=== PATIENT | female | born 1980 | race Caucasian/White ===

== ENCOUNTER 2018-07-16 15:53 | Emergency (ER) | END 2018-07-16 18:21 | disposition home or self-care (01) ==

== ENCOUNTER 2018-07-23 18:35 | Emergency (ER) | END 2018-07-24 01:00 | disposition home or self-care (01) ==

== ENCOUNTER 2018-08-08 19:01 | Inpatient (IN) | payer OTHER ==
[~2018-08-08] VITALS: Ht 165.1 cm; Wt 94.7 kg
[~2018-08-08 19:01] MED LIST: ACET1TAB40 PO; ALPR1TAB2 PO; DIC20 PO; ERGO500013 PO; ESOM40CA PO; FLUD0.1T10 PO; GABA300C16 PO; HYOS0.1297 SL; LEVO200T6 PO; LEVO500T48 PO; LIOT5TAB3 PO; NAPR-688 PO; NITR-58 PO; PANT40TA4 PO; PRED5TAB PO; ZOF8 PO; ZOLP10TA5 PO
[2018-08-08] MEDS ORDERED: ONDANSETRON 4 MG INJ IV STA (23:09)
[2018-08-08] MEDS ORDERED: morphine 4 MG/ML VIAL IV STA (23:09)
[2018-08-08] MEDS ORDERED: CEFTRIAXONE 1 GM/50 ML (PMX) 50 ML IVPB STA (23:09)
[2018-08-08] MEDS ORDERED: SODIUM CHLORIDE 0.9% 1L BAG IV* STA (23:09)
[2018-08-09] MEDS ORDERED: ACETAMINOPHEN 325 MG TAB PO PRN ×2 (01:30→05:00)
[2018-08-09] MEDS ORDERED: ONDANSETRON 4 MG INJ IV PRN (01:30)
--- NOTE | 2018-08-09 01:47 | ERD ---
ER Documentation Chief Complaint Chief Complaint R flank pain w/suprapubic cath site tenderness x 3 days HPI Patient is a 37-year-old female with history of endometriosis, anemia, and UTI who presents with a "infection". She has a suprapubic catheter. She has had 3 weeks of symptoms and has had 2 courses of antibiotics for cystitis already. She said that she still is not better and that she has "cottage cheese chunks" in her urinary catheter bag. She has right-sided flank pain and chills. Upon review of old medical records this is the patient's sixth visit to the ER since 2010. ROS All systems reviewed and are negative except as per history of present illness. Medications Home Meds Active Scripts Acetaminophen with Codeine (Acetaminophen-Cod #3 Tablet) 1 Each Tablet, 1 TAB PO Q6H PRN for PAIN, #20 TAB Prov:TOMAS LOMBARDO MD 07/23/18 Reported Medications Esomeprazole Mag Trihydrate (Nexium) 40 Mg Capsule.dr, 40 MG PO DAILY, #30 CAP 07/16/18 Dicyclomine HCl (Dicyclomine HCl) 20 Mg Tablet, 10 MG PO DAILY 07/16/18 Alprazolam* (Xanax*) 1 Mg Tab, 1 MG PO NEEDED PRN for ANXIETY, TAB 07/16/18 Zolpidem Tartrate* (Zolpidem Tartrate*) 10 Mg Tablet, 10 MG PO QHS PRN for I NSOMNIA, #30 TAB 07/16/18 Ergocalciferol (Vitamin D2) (VITAMIN D2) 50,000 Unit Capsule, 90007 UNIT PO Q2D, CAP 07/16/18 Pantoprazole* (Pantoprazole*) 40 Mg Tablet.dr, 40 MG PO AC BREAKFAST, TAB 07/16/18 Liothyronine Sodium* (Cytomel*) 5 Mcg Tablet, 10 MCG PO DAILY, TAB 07/16/18 Levothyroxine Sodium* (Levothyroxine Sodium*) 200 Mcg Tablet, 200 MCG PO BEFORE BREAKFAST, #30 TAB 07/16/18 Gabapentin* (Gabapentin*) 300 Mg Capsule, 300 MG PO TID, #90 CAP 07/16/18 Fludrocortisone* (Fludrocortisone*) 0.1 Mg Tablet, 0.1 MG PO DAILY, TAB 12/13/18 Ondansetron Hcl* (Zofran*) 8 Mg Tab, 8 MG PO Q8 PRN for NAUSEA AND/OR VOMITING, TAB 07/16/18 Naproxen* (Naproxen*) 500 Mg Tablet, 500 MG PO TID, TAB 07/16/18 Hyoscyamine Sulfate* (Hyoscyamine Sulfate*) 0.125 Mg Tab.subl, 0.125 MG SL WITH MEALS BEDTIME, TAB 07/16/18 Prednisone* (Prednisone*) 5 Mg Tab, 5 MG PO DAILY, TAB 07/16/18 Discontinued Scripts Nitrofurantoin Monohyd Macrocr* (Macrobid*) 100 Mg Capsr, 100 MG PO BID for 10 Days, CAP Prov:TOMAS LOMBARDO MD 07/23/18 Levofloxacin* (Levaquin*) 500 Mg Tablet, 500 MG PO DAILY for 10 Days, TAB Prov:TOMAS LOMBARDO MD 07/23/18 Allergies Allergies: Coded Allergies: Sulfa (Sulfonamide Antibiotics) (Verified Allergy, Unknown, 08/08/18) PMhx/Soc History of Surgery: Yes (HYSTERECTOMY ) Anesthesia Reaction: No Hx Neurological Disorder: No Hx Respiratory Disorders: No Hx Cardiac Disorders: No Hx Psychiatric Problems: No Hx Miscellaneous Medical Probl: Yes (ADRENAL DISORDER) Hx Alcohol Use: No Hx Substance Use: No Hx Tobacco Use: No Smoking Status: Never smoker FmHx Family History: diabetes Physical Exam Vitals Vital Signs Date Temp Pulse Resp B/P (MAP) Pulse Ox O2 O2 Flow FiO2 Time Delivery Rate 08/08/18 96.6 74 18 123/77 98 19:30 (92) Physical Exam Const: Mild distress Head: Atraumatic Eyes: Normal Conjunctiva ENT: Normal External Ears, Nose and Mouth. Neck: Full range of motion. No meningismus. Resp: Clear to auscultation bilaterally Cardio: Regular rate and rhythm, no murmurs Abd: Soft, suprapubic catheter in the lower abdomen Skin: No petechiae or rashes Back: No midline or flank tenderness Ext: No cyanosis, or edema Neur: Awake and alert Psych: Normal Mood and Affect Result Diagram: 08/08/18 1822 08/08/18 2322 Results 24 hrs Laboratory Tests Test 08/08/18 23:22 08/08/18 23:23 08/08/18 23:41 White Blood Count 8.2 10^3/ul Red Blood Count 4.37 10^6/ul Hemoglobin 11.9 g/dl Hematocrit 37.4 % Mean Corpuscular Volume 85.6 fl Mean Corpuscular Hemoglobin 27.2 pg Mean Corpuscular 31.8 g/dl Hemoglobin Concent Red Cell Distribution Width 14.6 % Platelet Count 337 10^3/UL Mean Platelet Volume 10.1 fl Immature Granulocytes % 0.100 % Neutrophils % 43.8 % Lymphocytes % 44.5 % Monocytes % 9.7 % Eosinophils % 1.7 % Basophils % 0.2 % Nucleated Red Blood Cells % 0.0 /100WBC Immature Granulocytes # 0.010 10^3/ul Neutrophils # 3.6 10^3/ul Lymphocytes # 3.6 10^3/ul Monocytes # 0.8 10^3/ul Eosinophils # 0.1 10^3/ul Basophils # 0.0 10^3/ul Nucleated Red Blood Cells # 0.0 10^3/ul Prothrombin Time 11.9 Sec Prothrombin Time Ratio 0.9 INR International 0.87 Normalized Ratio Activated Partial Thromboplast 27.5 Sec Time Sodium Level 144 mmol/L Potassium Level 4.2 mmol/L Chloride Level 105 mmol/L Carbon Dioxide Level 29 mmol/L Anion Gap 10 Blood Urea Nitrogen 19 mg/dl Creatinine 0.76 mg/dl Est Glomerular Filtrat > 60 mL/min Rate mL/min Glucose Level 102 mg/dl Calcium Level 9.9 mg/dl Troponin I < 0.012 ng/ml Urine Color YELLOW Urine Clarity SLIGHTLY CLOUDY Urine pH 5.0 Urine Specific [place] 1.021 Urine Ketones NEGATIVE mg/dL Urine Nitrite NEGATIVE mg/dL Urine Bilirubin NEGATIVE mg/dL Urine Urobilinogen NEGATIVE mg/dL Urine Leukocyte Esterase 3+ Giuseppe/ul Urine Microscopic RBC 7 /HPF Urine Microscopic WBC 67 /HPF Urine Bacteria FEW /HPF Urine Hemoglobin 1+ mg/dL Urine Glucose NEGATIVE mg/dL Urine Total Protein 1+ mg/dl POC Venous Lactate 1.3 mmol/L Current Medications Medications Dose Sig/Moises Start Time Status Last (Trade) Ordered Route PRN Stop Time Admin Dose Reason Admin Sodium 2,800 ml BOLUS OVER 2 08/08/18 DC 08/08/18 Chloride HOURS STAT 23:09 08/08/18 23:46 (NS) IV* 23:10 Morphine 4 mg ONCE STAT 08/08/18 DC 08/08/18 Sulfate IV 23:09 08/08/18 23:45 (morphine) 23:10 Ondansetron 4 mg ONCE STAT 08/08/18 DC 08/08/18 HCl (Zofran IV 23:09 08/08/18 23:45 Inj) 23:10 Ceftriaxone 50 ml @ ONCE STAT 08/08/18 DC 08/08/18 Sodium 100 mls/hr IVPB 23:09 08/08/18 23:46 23:38 Ondansetron 4 mg BRIDGE ORDER 08/09/18 HCl (Zofran PRN IV 01:30 08/10/18 Inj) NAUSEA AND/OR 01:29 VOMITING 650 mg ER BRIDGE 08/09/18 Acetaminophen PRN PO MILD 01:30 08/10/18 (Tylenol PAIN(1-3)OR 01:29 Tab) ELEVATED TEMP Procedures/MDM Patient is a 37-year-old female who presents with flank pain and acute cystitis. She was given ceftriaxone IV. She has failed outpatient treatment at this point as she has had 2 courses of antibiotics. She will be admitted to the care of Dr. Espinoza to a medical surgical bed. At this point I doubt sepsis. Initial lactic acid was normal. Departure Diagnosis: Primary Impression: Cystitis Additional Impression: Flank pain Condition: CHRISTOPHER Alvarado MD Aug 09, 2018 01:47
[2018-08-09] MEDS ORDERED: HYDROmorphONE 1 MG/ML SYG IV ONE (02:30)
[2018-08-09 04:45] VITALS: Ht 165.1 cm; Wt 94.7 kg
[2018-08-09 04:46] VITALS: BP 116/64; PULSE 62; RESP 18
[2018-08-09] MEDS ORDERED: NACL 0.9% 3 ML SYG IV SCH (05:00)
[2018-08-09] MEDS ORDERED: ZOLPIDEM 5 MG TAB PO PRN (05:00)
[2018-08-09] MEDS ORDERED: HYDROCODONE/APAP (5/325) TAB PO PRN (05:00)
[2018-08-09] MEDS ORDERED: ACETAMINOPHEN/CODEINE #3 TAB PO PRN (05:00)
[2018-08-09] MEDS ORDERED: ALBUTEROL/IPRATROPIUM (NEB) 3 ML AMP HHN PRN (05:00)
[2018-08-09] MEDS: LEVOTHYROXINE 100 MCG TAB PO SCH (06:27)
[2018-08-09] MEDS: PANTOPRAZOLE (EC) 40 MG TAB PO SCH (06:28)
--- NOTE | 2018-08-09 06:52 | HP ---
Date/Time of Note Date/Time of Note DATE: 08/09/18 TIME: 06:50 Assessment/Plan VTE Prophylaxis Risk score (from Nsg)>0 risk: 0 SCD applied (from Nsg): Yes Pharmacological prophylaxis: heparin Lines/Catheters IV Catheter Type (from Nrsg): Saline Lock Urinary Cath still in place: Yes Reason Cath still needed: other (indicate) Assessment/Plan Assessment/Plan 37-year-old female with a history of hypothyroidism, possible adrenal insufficiency, gastroparesis, gastric sleeve surgery, suprapubic catheter, UTI, anxiety presented with lower abdominal pain, most likely secondary to UTI with failed outpatient management PLAN -IV antibiotic -IV fluid -Follow-up urine culture results -Continue home meds, adjust as needed Result Diagram: 08/09/1844008/09/18440 Results 24hrs Laboratory Tests Test 08/08/18 23:22 08/08/18 23:23 08/08/18 23:41 08/09/18 04:41 White Blood Count 8.2 # 6.3 # Red Blood Count 4.37 3.55 L Hemoglobin 11.9 L 9.8 L Hematocrit 37.4 30.7 L Mean Corpuscular 85.6 86.5 Volume Mean Corpuscular 27.2 L 27.6 L Hemoglobin Mean Corpuscular 31.8 L 31.9 L Hemoglobin Concent Red Cell 14.6 H 14.5 Distribution Width Platelet Count 337 # 261 # Mean Platelet 10.1 10.5 H Volume Immature 0.100 0.200 Granulocytes % Neutrophils % 43.8 Lymphocytes % 44.5 Monocytes % 9.7 Eosinophils % 1.7 Basophils % 0.2 Nucleated Red 0.0 0.0 Blood Cells % Immature 0.010 0.010 Granulocytes # Neutrophils # 3.6 Lymphocytes # 3.6 H Monocytes # 0.8 Eosinophils # 0.1 Basophils # 0.0 Nucleated Red 0.0 Blood Cells # Prothrombin Time 11.9 Prothrombin Time 0.9 Ratio INR International 0.87 Normalized Ratio Activated 27.[address] Time Sodium Level 144 148 H Potassium Level 4.2 4.3 Chloride Level 105 111 H Carbon Dioxide 29 26 Level Anion Gap 10 11 Blood Urea 19 16 Nitrogen Creatinine 0.76 0.67 Est Glomerular > 60 > 60 Filtrat Rate mL/min Glucose Level 102 100 Calcium Level 9.9 8.8 Troponin I < 0.012 Urine Color YELLOW Urine Clarity SLIGHTLY CLOUDY A Urine pH 5.0 Urine Specific 1.021 [place] Urine Ketones NEGATIVE Urine Nitrite NEGATIVE Urine Bilirubin NEGATIVE Urine Urobilinogen NEGATIVE Urine Leukocyte 3+ H Esterase Urine Microscopic 7 H RBC Urine Microscopic 67 H WBC Urine Bacteria FEW A Urine Hemoglobin 1+ H Urine Glucose NEGATIVE Urine Total 1+ H Protein POC Venous Lactate 1.3 Lactic Acid Level 0.8 Total Bilirubin 0.0 L Direct Bilirubin 0.00 Indirect Bilirubin 0.0 Aspartate Amino 21 Transf (AST/SGOT) Alanine 23 Aminotransferase ( ALT/SGPT) Alkaline 68 Phosphatase Total Protein 6.9 Albumin 3.8 Globulin 3.10 Albumin/Globulin 1.22 Ratio HPI/ROS Admit Date/Time Admit Date/Time Aug 09, 2018 at 01:10 Hx of Present Illness This is a 37-year-old female with a history of hypothyroidism, possible adrenal insufficiency, gastroparesis, gastric sleeve surgery, suprapubic catheter who presented to ER complaining of suprapubic abdominal pain and the pain in her suprapubic catheter area as well as nausea. Patient was recently diagnosed with UTI and was treated with antibiotic. In the ER, UA consistent with UTI. She said supra catheter was placed about a year ago after complication from pelvic surgery ("my artery was nicked'). PMH/Family/Social Past Medical History Medications Current Medications Ondansetron HCl (Zofran Inj) 4 mg BRIDGE ORDER PRN IV NAUSEA AND/OR VOMITING; Start 08/09/18 at 01:30; Stop 08/10/18 at 01:29 Acetaminophen (Tylenol Tab) 650 mg ER BRIDGE PRN PO MILD PAIN(1-3)OR ELEVATED TEMP; Start 08/09/18 at 01:30; Stop 08/10/18 at 01:29 IV Flush (NS 3 ml) 3 ml PER PROTOCOL IV ; Start 08/09/18 at 05:00 Ondansetron HCl (Zofran Inj) 4 mg Q6H PRN IV NAUSEA AND/OR VOMITING; Start 08/09/18 at 05:00 Acetaminophen (Tylenol Tab) 650 mg Q6H PRN PO PAIN LEVEL 1-3 OR FEVER; Start 08/09/18 at 05:00 Acetaminophen/ Hydrocodone Bitart ([place] (5/325)) 1 tab Q6H PRN PO MODERATE PAIN LEVEL 4-6; Start 08/09/18 at 05:00 Acetaminophen/ Hydrocodone Bitart ([place] (5/325)) 2 tab Q6H PRN PO SEVERE PAIN LEVEL 7-10; Start 08/09/18 at 05:00 Albuterol/ Ipratropium (Duoneb) 3 ml Q2H RESP THERAPY PRN HHN SHORTNESS OF BREATH; Start 08/09/18 at 05:00 Alprazolam (Xanax) 1 mg Q8H PRN PO ANXIETY; Start 08/09/18 at 05:00 Ergocalciferol (Drisdol) 50,000 unit Q2D PO ; Start 08/09/18 at 09:00 Fludrocortisone Acetate (Florinef) 0.1 mg DAILY PO ; Start 08/09/18 at 09:00 Gabapentin (Neurontin) 300 mg TID PO ; Start 08/09/18 at 09:00 Hyoscyamine (Levsin (Sl)) 0.125 mg WITH MEALS BEDTIME SL ; Start 08/09/18 at 07:50 Levothyroxine Sodium (Synthroid) 200 mcg BEFORE BREAKFAST PO Last administered on 08/09/18at 06:27; Admin Dose 200 MCG; Start 08/09/18 at 07:00 Liothyronine Sodium (Cytomel) 10 mcg DAILY PO ; Start 08/09/18 at 09:00 Naproxen (Naprosyn) 500 mg TID PO ; Start 08/09/18 at 09:00 Pantoprazole (Protonix Tab) 40 mg AC BREAKFAST PO Last administered on 08/09/18at 06:28; Admin Dose 40 MG; Start 08/09/18 at 07:20 Zolpidem Tartrate (Ambien) 10 mg QHS PRN PO INSOMNIA; Start 08/09/18 at 05:00 Ceftriaxone Sodium 50 ml @ 100 mls/hr Q12 IVPB ; Start 08/09/18 at 09:00 Coded Allergies: Sulfa (Sulfonamide Antibiotics) (Verified Allergy, Unknown, 08/08/18) Social History Smoking Status: Never smoker Exam/Review of Systems Vital Signs Vitals Vital Signs Date Temp Pulse Resp B/P (MAP) Pulse Ox O2 O2 Flow FiO2 Time Delivery Rate 08/09/18 98.6 62 18 116/64 99 Room Air 04:46 (81) Exam Exam Constitutional: other (no acute distress) Head: normocephalic Respiratory: other (slight decreased at bases) Cardiovascular: regular rate and rhythm Gastrointestinal: soft Extremities: normal pulses PMH/Family/Social Past Medical History Medical History: other (see hpi) Coded Allergies: No Known Drug Allergy (Verified Allergy, Unknown, 03/21/16) Past Surgical History Past Surgical Hx: other (see hpi) Family History Significant Family History: no pertinent family hx Social History Alcohol Use: other Smoking Status: Unknown if ever smoked Drug Use: other DANTE RUSSELL MD Aug 09, 2018 06:52
[2018-08-09 07:59] VITALS: BP 99/56; PULSE 61; RESP 18
[2018-08-09] MEDS: CEFTRIAXONE 1 GM/50 ML (PMX) 50 ML IVPB SCH ×2 (08:24→21:00)
[2018-08-09] MEDS: GABAPENTIN 300 MG CAP PO SCH ×3 (08:24→20:59)
[2018-08-09] MEDS ORDERED: NON-FORMULARY/PATIENT OWN MED (Esomeprazole Mag Trihydrate (Nexium) 40 MG) PO SCH (09:00)
[2018-08-09] MEDS: HYOSCYAMINE 0.125 MG SUBL TAB SL SCH ×4 (09:16→20:59)
[2018-08-09] MEDS: NAPROXEN 500 MG TAB PO SCH ×3 (09:16→20:59)
[2018-08-09] MEDS: FLUDROCORTISONE 0.1 MG TAB PO SCH (09:18)
[2018-08-09] MEDS: ERGOCALCIFEROL 50,000 UNIT CAP PO SCH (09:18)
[2018-08-09] MEDS: LIOTHYRONINE 5 MCG TAB PO SCH (09:18)
[2018-08-09] MEDS: ONDANSETRON 4 MG INJ IV PRN (13:43)
[2018-08-09] MEDS: HYDROCODONE/APAP (5/325) TAB PO PRN (13:48)
[2018-08-09 14:18] VITALS: BP 100/57; PULSE 59; RESP 18
--- NOTE | 2018-08-09 15:18 | PN ---
Date/Time of Note Date/Time of Note DATE: 08/09/18 TIME: 15:14 Assessment/Plan VTE Prophylaxis Risk score (from Ns)>0 risk: 4 SCD applied (from Ns): Yes SCD contraindicated: low risk/ambulating Pharmacological prophylaxis: LMWH Lines/Catheters IV Catheter Type (from [facility]): Saline Lock Urinary Cath still in place: Yes Reason Cath still needed: urinary retention Assessment/Plan Hospital Course Assessment and plan 1. Abdominal pain, dysuria, foul-smelling discharge, rule out wound infection recurrent cystitis. Stable check cultures 2. Chronic obstructive uropathy 3. Chronic suprapubic catheter status, follow-up with urology 4. Morbid obesity 5. Anemia 6. Chronic IBS? 7. Chronic pain? Subjective: Abdominal discomfort foul-smelling discharge at suprapubic site recently. She has home health and did see urology every 6 weeks. Occasional constipation and diarrhea. No GI bleed. No hematuria but apparently he may have some clots occasionally. Active: Vital signs stable Physical exam No pallor adenopathy Regular Clear Bs+, mild suprapubic/ umbilical tenderness no r/r/g; overweight. catheter intact, local area is erythematous and not dry No edema Result Diagram: 08/09/18 0441 08/09/18 0441 Results 24hrs Laboratory Tests Test 08/08/18 23:22 08/08/18 23:23 08/08/18 23:41 08/09/18 04:41 White Blood Count 8.2 # 6.3 # Red Blood Count 4.37 3.55 L Hemoglobin 11.9 L 9.8 L Hematocrit 37.4 30.7 L Mean Corpuscular 85.6 86.5 Volume Mean Corpuscular 27.2 L 27.6 L Hemoglobin Mean Corpuscular 31.8 L 31.9 L Hemoglobin Concent Red Cell 14.6 H 14.5 Distribution Width Platelet Count 337 # 261 # Mean Platelet 10.1 10.5 H Volume Immature 0.100 0.200 Granulocytes % Neutrophils % 43.8 Lymphocytes % 44.5 Monocytes % 9.7 Eosinophils % 1.7 Basophils % 0.2 Nucleated Red 0.0 0.0 Blood Cells % Immature 0.010 0.010 Granulocytes # Neutrophils # 3.6 Lymphocytes # 3.6 H Monocytes # 0.8 Eosinophils # 0.1 Basophils # 0.0 Nucleated Red 0.0 Blood Cells # Prothrombin Time 11.9 Prothrombin Time 0.9 Ratio INR International 0.87 Normalized Ratio Activated 27.[address] Time Sodium Level 144 148 H Potassium Level 4.2 4.3 Chloride Level 105 111 H Carbon Dioxide 29 26 Level Anion Gap 10 11 Blood Urea 19 16 Nitrogen Creatinine 0.76 0.67 Est Glomerular > 60 > 60 Filtrat Rate mL/min Glucose Level 102 100 Calcium Level 9.9 8.8 Troponin I < 0.012 Urine Color YELLOW Urine Clarity SLIGHTLY CLOUDY A Urine pH 5.0 Urine Specific 1.021 [place] Urine Ketones NEGATIVE Urine Nitrite NEGATIVE Urine Bilirubin NEGATIVE Urine Urobilinogen NEGATIVE Urine Leukocyte 3+ H Esterase Urine Microscopic 7 H RBC Urine Microscopic 67 H WBC Urine Bacteria FEW A Urine Hemoglobin 1+ H Urine Glucose NEGATIVE Urine Total 1+ H Protein POC Venous Lactate 1.3 Segmented 32 L Neutrophils % (Manual) Lymphocytes % 49 (Manual) Reactive 2 H Lymphocytes % (Manual) Monocytes % 13 H (Manual) Eosinophils % 4 (Manual) Lymphocytes 3.0 H (Manual) Reactive 0.1 H Lymphocytes # Monocytes # 0.8 (Manual) Platelet Estimate NORMAL Polychromasia 3+ Poikilocytosis 1+ Anisocytosis 2+ Microcytosis 1+ Macrocytosis 1+ Lactic Acid Level 0.8 Total Bilirubin 0.0 L Direct Bilirubin 0.00 Indirect Bilirubin 0.0 Aspartate Amino 21 Transf (AST/SGOT) Alanine 23 Aminotransferase ( ALT/SGPT) Alkaline 68 Phosphatase Total Protein 6.9 Albumin 3.8 Globulin 3.10 Albumin/Globulin 1.22 Ratio Thyroid 7.590 H Stimulating Hormone (TSH) Exam/Review of Systems Vital Signs Vitals Vital Signs Date Temp Pulse Resp B/P (MAP) Pulse Ox O2 O2 Flow FiO2 Time Delivery Rate 08/09/18 97.8 59 18 100/57 94 14:18 (71) 08/09/18 Room Air 04:46 Medications Medications Current Medications Ondansetron HCl (Zofran Inj) 4 mg BRIDGE ORDER PRN IV NAUSEA AND/OR VOMITING; Start 08/09/18 at 01:30; Stop 08/10/18 at 01:29 Acetaminophen (Tylenol Tab) 650 mg ER BRIDGE PRN PO MILD PAIN(1-3)OR ELEVATED TEMP; Start 08/09/18 at 01:30; Stop 08/10/18 at 01:29 IV Flush (NS 3 ml) 3 ml PER PROTOCOL IV ; Start 08/09/18 at 05:00 Ondansetron HCl (Zofran Inj) 4 mg Q6H PRN IV NAUSEA AND/OR VOMITING Last administered on 08/09/18 13:43; Admin Dose 4 MG; Start 08/09/18 at 05:00 Acetaminophen (Tylenol Tab) 650 mg Q6H PRN PO PAIN LEVEL 1-3 OR FEVER; Start 08/09/18 at 05:00 Acetaminophen/ Hydrocodone Bitart ([place] (5/325)) 1 tab Q6H PRN PO MODERATE PAIN LEVEL 4-6; Start 08/09/18 at 05:00 Acetaminophen/ Hydrocodone Bitart ([place] (5/325)) 2 tab Q6H PRN PO SEVERE PAIN LEVEL 7-10 Last administered on 08/09/18 13:48; Admin Dose 2 TAB; Start 08/09/18 at 05:00 Albuterol/ Ipratropium (Duoneb) 3 ml Q2H RESP THERAPY PRN HHN SHORTNESS OF BREATH; Start 08/09/18 at 05:00 Alprazolam (Xanax) 1 mg Q8H PRN PO ANXIETY; Start 08/09/18 at 05:00 Ergocalciferol (Drisdol) 50,000 unit Q2D PO Last administered on 08/09/18 09:18; Admin Dose 50,000 UNIT; Start 08/09/18 at 09:00 Fludrocortisone Acetate (Florinef) 0.1 mg DAILY PO Last administered on 08/09/18 09:18; Admin Dose 0.1 MG; Start 08/09/18 at 09:00 Gabapentin (Neurontin) 300 mg TID PO Last administered on 08/09/18 13:04; Admin Dose 300 MG; Start 08/09/18 at 09:00 Hyoscyamine (Levsin (Sl)) 0.125 mg WITH MEALS BEDTIME SL Last administered on 08/09/18 12:05; Admin Dose 0.125 MG; Start 08/09/18 at 07:50 Levothyroxine Sodium (Synthroid) 200 mcg BEFORE BREAKFAST PO Last administered on 08/09/18 06:27; Admin Dose 200 MCG; Start 08/09/18 at 07:00 Liothyronine Sodium (Cytomel) 10 mcg DAILY PO Last administered on 08/09/18at 09:18; Admin Dose 10 MCG; Start 08/09/18 at 09:00 Naproxen (Naprosyn) 500 mg TID PO Last administered on 08/09/18at 13:04; Admin Dose 500 MG; Start 08/09/18 at 09:00 Pantoprazole (Protonix Tab) 40 mg AC BREAKFAST PO Last administered on 08/09/18at 06:28; Admin Dose 40 MG; Start 08/09/18 at 07:20 Zolpidem Tartrate (Ambien) 10 mg QHS PRN PO INSOMNIA; Start 08/09/18 at 05:00 Ceftriaxone Sodium 50 ml @ 100 mls/hr Q12 IVPB Last administered on 08/09/18at 08:24; Admin Dose 100 MLS/HR; Start 08/09/18 at 09:00 SHIELA SALAZAR MD Aug 09, 2018 15:18
[2018-08-09 20:24] VITALS: BP 103/59; PULSE 77; RESP 18
[2018-08-09] MEDS: LACTOBACILLUS RHAMNOSUS CAP PO SCH (20:59)
[2018-08-10 02:29] VITALS: BP 106/60; PULSE 66; RESP 18
[2018-08-10] MEDS: LEVOTHYROXINE 100 MCG TAB PO SCH (06:31)
[2018-08-10] MEDS: PANTOPRAZOLE (EC) 40 MG TAB PO SCH (06:31)
[2018-08-10] MEDS: HYDROCODONE/APAP (5/325) TAB PO PRN ×3 (06:31→16:32)
[2018-08-10 07:34] VITALS: BP 101/58; PULSE 72; RESP 18
[2018-08-10] MEDS: LIOTHYRONINE 5 MCG TAB PO SCH (08:50)
[2018-08-10] MEDS: GABAPENTIN 300 MG CAP PO SCH ×3 (08:50→21:21)
[2018-08-10] MEDS: HYOSCYAMINE 0.125 MG SUBL TAB SL SCH ×4 (08:50→21:21)
[2018-08-10] MEDS: CEFTRIAXONE 1 GM/50 ML (PMX) 50 ML IVPB SCH (08:50)
[2018-08-10] MEDS: LACTOBACILLUS RHAMNOSUS CAP PO SCH ×2 (08:50→21:21)
[2018-08-10] MEDS: NAPROXEN 500 MG TAB PO SCH ×3 (08:58→21:21)
[2018-08-10] MEDS: FLUDROCORTISONE 0.1 MG TAB PO SCH (08:58)
[2018-08-10 14:15] VITALS: BP 111/62; PULSE 62; RESP 19
--- NOTE | 2018-08-10 15:37 | PN ---
Date/Time of Note Date/Time of Note DATE: 08/10/18 TIME: 15:20 Assessment/Plan VTE Prophylaxis Risk score (from Ns)>0 risk: 3 SCD applied (from Ns): Yes Pharmacological prophylaxis: LMWH Lines/Catheters IV Catheter Type (from Nrs): Saline Lock Urinary Cath still in place: Yes Reason Cath still needed: urinary retention Assessment/Plan Assessment/Plan 1. Pseudomonas UTI, suprapubic catheter related, change rocephin to zosyn and follow up with final culture result 2. Neurogenic bladder from previous surgery, s/p suprapubic catheter status 3. Normocytic anemia, chronic 4. Hypothyroidism, on supplement 5. Adrenal insufficiency, on fludrocortisone 6. Morbid obesity, s/p sleeve surgery 7. h/o hysterectomy Result Diagram: 08/10/186 08/10/18 0436 Results 24hrs Laboratory Tests Test 08/10/18 04:36 White Blood Count 6.4 Red Blood Count 3.41 L Hemoglobin 9.7 L Hematocrit 29.5 L Mean Corpuscular Volume 86.5 Mean Corpuscular Hemoglobin 28.4 L Mean Corpuscular Hemoglobin Concent 32.9 Red Cell Distribution Width 14.6 H Platelet Count 259 Mean Platelet Volume 10.3 Immature Granulocytes % 0.200 Neutrophils % 42.2 Lymphocytes % 46.6 Monocytes % 8.0 Eosinophils % 2.7 Basophils % 0.3 Nucleated Red Blood Cells % 0.0 Immature Granulocytes # 0.010 Neutrophils # 2.7 Lymphocytes # 3.0 H Monocytes # 0.5 Eosinophils # 0.2 Basophils # 0.0 Nucleated Red Blood Cells # 0.0 Sodium Level 144 Potassium Level 4.0 Chloride Level 108 Carbon Dioxide Level 27 Anion Gap 9 Blood Urea Nitrogen 12 Creatinine 0.61 Est Glomerular Filtrat Rate mL/min > 60 Glucose Level 125 Calcium Level 8.4 Phosphorus Level 3.8 Magnesium Level 1.9 Total Bilirubin 0.0 L Direct Bilirubin 0.00 Indirect Bilirubin 0.0 Aspartate Amino Transf (AST/SGOT) 16 Alanine Aminotransferase (ALT/SGPT) 18 Alkaline Phosphatase 73 Total Protein 6.3 Albumin 3.3 Globulin 3.00 Albumin/Globulin Ratio 1.10 Free Thyroxine 1.82 Total Triiodothyronine 1.23 Subjective 24 Hr Interval Summary Free Text/Dictation lower abdominal pain Exam/Review of Systems Vital Signs Vitals Vital Signs Date Temp Pulse Resp B/P (MAP) Pulse Ox O2 O2 Flow FiO2 Time Delivery Rate 08/10/18 98.2 62 19 111/62 98 14:15 (78) 08/09/18 Room Air 04:46 Intake and Output 08/09/18 08/09/18 08/10/18 1515:00 23:00 07:00 IntakeIntake Total 450 ml 950 ml 800 ml OutputOutput Total 200 ml 2100 ml 1200 ml BalanceBalance 250 ml -1150 ml -400 ml Exam Constitutional: alert, oriented, well developed Psych: no complaints, nl mood/affect Head: normocephalic Eyes: nl conjunctiva, EOMI, nl lids, PERRL ENMT: nl external ears & nose, nl lips & teeth, nl nasal mucosa & septum Neck: supple, non-tender Respiratory: clear to auscultation, normal air movement; No congested cough, No crackles/rales, No diminished breath sounds, No intercostal retraction, No labored breathing, No respirations, No tactile fremitus, No wheezing, No other Cardiovascular: regular rate and rhythm, nl pulses; No bruits, No diastolic murmur, No edema, No gallop, No irregular rhythm, No jugular venous distention (JVD), No murmurs/extra sounds, No rub, No systolic murmur, No S3, No S4, No other Gastrointestinal: soft, nl liver, spleen Musculoskeletal: nl extremities to inspection, nl gait and stance Extremities: normal pulses; No calf tenderness, No cyanosis, No clubbing, No edema, No pitting pedal edema, No palpable cord, No tenderness, No other Neurological: LEARNING AND DEVELOPMENT DIRECTOR II-XII intact, nl mental status, nl speech, nl strength Medications Medications Current Medications IV Flush (NS 3 ml) 3 ml PER PROTOCOL IV ; Start 08/09/18 at 05:00 Ondansetron HCl (Zofran Inj) 4 mg Q6H PRN IV NAUSEA AND/OR VOMITING Last administered on 08/09/18at 13:43; Admin Dose 4 MG; Start 08/09/18 at 05:00 Acetaminophen (Tylenol Tab) 650 mg Q6H PRN PO PAIN LEVEL 1-3 OR FEVER; Start 08/09/18 at 05:00 Acetaminophen/ Hydrocodone Bitart ([place] (5/325)) 1 tab Q6H PRN PO MODERATE PA IN LEVEL 4-6; Start 08/09/18 at 05:00 Acetaminophen/ Hydrocodone Bitart ([place] (5/325)) 2 tab Q6H PRN PO SEVERE PAIN LEVEL 7-10 Last administered on 08/10/18 12:43; Admin Dose 2 TAB; Start 08/09/18 at 05:00 Albuterol/ Ipratropium (Duoneb) 3 ml Q2H RESP THERAPY PRN HHN SHORTNESS OF BREATH; Start 08/09/18 at 05:00 Alprazolam (Xanax) 1 mg Q8H PRN PO ANXIETY; Start 08/09/18 at 05:00 Ergocalciferol (Drisdol) 50,000 unit Q2D PO Last administered on 08/09/18 09:18; Admin Dose 50,000 UNIT; Start 08/09/18 at 09:00 Fludrocortisone Acetate (Florinef) 0.1 mg DAILY PO Last administered on 08/10/18 08:58; Admin Dose 0.1 MG; Start 08/09/18 at 09:00 Gabapentin (Neurontin) 300 mg TID PO Last administered on 08/10/18 12:43; Admin Dose 300 MG; Start 08/09/18 at 09:00 Hyoscyamine (Levsin (Sl)) 0.125 mg WITH MEALS BEDTIME SL Last administered on 08/10/18 12:43; Admin Dose 0.125 MG; Start 08/09/18 at 07:50 Levothyroxine Sodium (Synthroid) 200 mcg BEFORE BREAKFAST PO Last administered on 08/10/18 06:31; Admin Dose 200 MCG; Start 08/09/18 at 07:00 Liothyronine Sodium (Cytomel) 10 mcg DAILY PO Last administered on 08/10/18 08:50; Admin Dose 10 MCG; Start 08/09/18 at 09:00 Naproxen (Naprosyn) 500 mg TID PO Last administered on 08/10/18 12:43; Admin Dose 500 MG; Start 08/09/18 at 09:00 Pantoprazole (Protonix Tab) 40 mg AC BREAKFAST PO Last administered on 08/10/18 06:31; Admin Dose 40 MG; Start 08/09/18 at 07:20 Zolpidem Tartrate (Ambien) 10 mg QHS PRN PO INSOMNIA; Start 08/09/18 at 05:00 Ceftriaxone Sodium 50 ml @ 100 mls/hr Q12 IVPB Last administered on 08/10/18at 08:50; Admin Dose 100 MLS/HR; Start 08/09/18 at 09:00 Lactobacillus Acidophilus/ Rhamnosus (Culturelle) 1 cap BID PO Last administer ed on 08/10/18at 08:50; Admin Dose 1 CAP; Start 08/09/18 at 21:00 CATRINA STEARNS MD Aug 10, 2018 15:30
[2018-08-10] MEDS: ONDANSETRON 4 MG INJ IV PRN (15:57)
[2018-08-10] MEDS: PIPER-TAZO 3.375 GM IV (PMX) 100 ML IVPB SCH ×2 (15:57→22:38)
[2018-08-10 19:50] VITALS: BP 109/58; PULSE 66; RESP 18
[2018-08-11] MEDS: HYDROCODONE/APAP (5/325) TAB PO PRN ×3 (01:49→22:21)
[2018-08-11 02:22] VITALS: BP 106/59; PULSE 60; RESP 18
[2018-08-11] MEDS: PIPER-TAZO 3.375 GM IV (PMX) 100 ML IVPB SCH ×3 (05:24→22:21)
[2018-08-11] MEDS: LEVOTHYROXINE 100 MCG TAB PO SCH (05:24)
[2018-08-11 07:23] VITALS: BP_SYST 11; BP_SYST 111; BP_DIAS 71; PULSE 71; RESP 19
[2018-08-11] MEDS: LIOTHYRONINE 5 MCG TAB PO SCH (09:46)
[2018-08-11] MEDS: NAPROXEN 500 MG TAB PO SCH ×3 (09:47→20:25)
[2018-08-11] MEDS: GABAPENTIN 300 MG CAP PO SCH ×3 (09:47→20:25)
[2018-08-11] MEDS: FLUDROCORTISONE 0.1 MG TAB PO SCH (09:47)
[2018-08-11] MEDS: PANTOPRAZOLE (EC) 40 MG TAB PO SCH (09:47)
[2018-08-11] MEDS: ERGOCALCIFEROL 50,000 UNIT CAP PO SCH (09:47)
[2018-08-11] MEDS: LACTOBACILLUS RHAMNOSUS CAP PO SCH ×2 (09:48→20:25)
[2018-08-11] MEDS: HYOSCYAMINE 0.125 MG SUBL TAB SL SCH ×4 (10:00→20:25)
[2018-08-11 14:26] VITALS: BP 119/58; PULSE 72; RESP 18
--- NOTE | 2018-08-11 15:46 | PN ---
Date/Time of Note Date/Time of Note DATE: 08/11/18 TIME: 15:35 Assessment/Plan VTE Prophylaxis Risk score (from Ns)>0 risk: 1 SCD applied (from Ns): Yes Pharmacological prophylaxis: LMWH Lines/Catheters IV Catheter Type (from Nrs): Saline Lock Urinary Cath still in place: Yes Reason Cath still needed: urinary retention Assessment/Plan Assessment/Plan 1. Pseudomonas UTI, suprapubic catheter related, improving on zosyn 2. Neurogenic bladder from previous surgery, s/p suprapubic catheter status 3. Normocytic anemia, chronic 4. Hypothyroidism, on supplement 5. Adrenal insufficiency, on fludrocortisone 6. Morbid obesity, s/p sleeve surgery 7. h/o hysterectomy 8. DVT prophylaxis: lovenox Result Diagram: 08/10/1843508/10/18435 Subjective 24 Hr Interval Summary Free Text/Dictation less abdominal pain, afebrile Exam/Review of Systems Vital Signs Vitals Vital Signs Date Temp Pulse Resp B/P (MAP) Pulse Ox O2 O2 Flow FiO2 Time Delivery Rate 08/11/18 98.4 72 18 119/58 96 14:26 (78) 08/09/18 Room Air 04:46 Intake and Output 08/10/18 08/10/18 08/11/18 1515:00 23:00 07:00 IntakeIntake Total 50 ml 780 ml 600 ml OutputOutput Total 1200 ml 1300 ml BalanceBalance 50 ml -420 ml -700 ml Exam Constitutional: alert, oriented, well developed Psych: no complaints, nl mood/affect Head: normocephalic, atraumatic Eyes: nl conjunctiva, EOMI, nl lids ENMT: nl external ears & nose, nl lips & teeth, nl nasal mucosa & septum Neck: supple, non-tender Respiratory: clear to auscultation, normal air movement; No congested cough, No crackles/rales, No diminished breath sounds, No intercostal retraction, No labored breathing, No respirations, No tactile fremitus, No wheezing, No other Cardiovascular: regular rate and rhythm, nl pulses; No bruits, No diastolic murmur, No edema, No gallop, No irregular rhythm, No jugular venous distention (JVD), No murmurs/extra sounds, No rub, No systolic murmur, No S3, No S4, No other Gastrointestinal: soft, nl liver, spleen Musculoskeletal: nl extremities to inspection Extremities: normal pulses; No calf tenderness, No cyanosis, No clubbing, No edema, No pitting pedal edema, No palpable cord, No tenderness, No other 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, nl mental status, nl speech, nl strength Medications Medications Current Medications IV Flush (NS 3 ml) 3 ml PER PROTOCOL IV ; Start 08/09/18 at 05:00 Ondansetron HCl (Zofran Inj) 4 mg Q6H PRN IV NAUSEA AND/OR VOMITING Last administered on 08/10/18 15:57; Admin Dose 4 MG; Start 08/09/18 at 05:00 Acetaminophen (Tylenol Tab) 650 mg Q6H PRN PO PAIN LEVEL 1-3 OR FEVER; Start 08/09/18 at 05:00 Albuterol/ Ipratropium (Duoneb) 3 ml Q2H RESP THERAPY PRN HHN SHORTNESS OF BREATH; Start 08/09/18 at 05:00 Alprazolam (Xanax) 1 mg Q8H PRN PO ANXIETY; Start 08/09/18 at 05:00 Ergocalciferol (Drisdol) 50,000 unit Q2D PO Last administered on 08/11/18 09:47; Admin Dose 50,000 UNIT; Start 08/09/18 at 09:00 Fludrocortisone Acetate (Florinef) 0.1 mg DAILY PO Last administered on 08/11/18 09:47; Admin Dose 0.1 MG; Start 08/09/18 at 09:00 Gabapentin (Neurontin) 300 mg TID PO Last administered on 08/11/18 13:16; Admin Dose 300 MG; Start 08/09/18 at 09:00 Hyoscyamine (Levsin (Sl)) 0.125 mg WITH MEALS BEDTIME SL Last administered on 08/11/18 13:16; Admin Dose 0.125 MG; Start 08/09/18 at 07:50 Levothyroxine Sodium (Synthroid) 200 mcg BEFORE BREAKFAST PO Last administered on 08/11/18 05:24; Admin Dose 200 MCG; Start 08/09/18 at 07:00 Liothyronine Sodium (Cytomel) 10 mcg DAILY PO Last administered on 08/11/18 09:46; Admin Dose 10 MCG; Start 08/09/18 at 09:00 Naproxen (Naprosyn) 500 mg TID PO Last administered on 08/11/18 13:16; Admin Dose 500 MG; Start 08/09/18 at 09:00 Pantoprazole (Protonix Tab) 40 mg AC BREAKFAST PO Last administered on 08/11/18 09:47; Admin Dose 40 MG; Start 08/09/18 at 07:20 Zolpidem Tartrate (Ambien) 10 mg QHS PRN PO INSOMNIA; Start 08/09/18 at 05:00 Lactobacillus Acidophilus/ Rhamnosus (Culturelle) 1 cap BID PO Last administered on 08/11/18 09:48; Admin Dose 1 CAP; Start 08/09/18 at 21:00 Piperacillin Sod/ Tazobactam Sod 100 ml @ 200 mls/hr Q8 IVPB Last administered on 08/11/18 14:57; Admin Dose 200 MLS/HR; Start 08/10/18 at 15:30 Acetaminophen/ Hydrocodone Bitart ([place] (5/325)) 1 tab Q4H PRN PO PAIN LEVEL 1-6; Start 08/10/18 at 17:00 Acetaminophen/ Hydrocodone Bitart ([place] (5/325)) 2 tab Q4H PRN PO SEVERE PAIN LEVEL 7-10 Last administered on 08/11/18 01:49; Admin Dose 2 TAB; Start 08/10/18 at 17:00 CATRINA STEARNS MD Aug 11, 2018 15:46
[2018-08-11] MEDS: ONDANSETRON 4 MG INJ IV PRN (18:54)
[2018-08-11] MEDS: ENOXAPARIN 40 MG/0.4 ML SYG SC SCH (18:55)
[2018-08-11 20:07] VITALS: BP 102/60; PULSE 73; RESP 18
[2018-08-12 02:33] VITALS: BP 99/54; PULSE 78; RESP 18
[2018-08-12] MEDS: PIPER-TAZO 3.375 GM IV (PMX) 100 ML IVPB SCH ×2 (05:42→13:46)
[2018-08-12] MEDS: LEVOTHYROXINE 100 MCG TAB PO SCH (05:42)
[2018-08-12 07:31] VITALS: BP 101/52; PULSE 68; RESP 18
[2018-08-12] MEDS: HYOSCYAMINE 0.125 MG SUBL TAB SL SCH ×4 (08:28→21:54)
[2018-08-12] MEDS: GABAPENTIN 300 MG CAP PO SCH ×3 (08:28→21:54)
[2018-08-12] MEDS: PANTOPRAZOLE (EC) 40 MG TAB PO SCH (08:29)
[2018-08-12] MEDS: LIOTHYRONINE 5 MCG TAB PO SCH (08:29)
[2018-08-12] MEDS: LACTOBACILLUS RHAMNOSUS CAP PO SCH ×2 (08:29→21:54)
[2018-08-12] MEDS: NAPROXEN 500 MG TAB PO SCH ×3 (08:29→21:54)
[2018-08-12] MEDS: FLUDROCORTISONE 0.1 MG TAB PO SCH (08:30)
[2018-08-12] MEDS: ENOXAPARIN 40 MG/0.4 ML SYG SC SCH (08:31)
[2018-08-12] MEDS: ONDANSETRON 4 MG INJ IV PRN (12:11)
[2018-08-12] MEDS: ALPRAZOLAM 1 MG TAB PO PRN (12:18)
[2018-08-12 15:36] VITALS: BP 86/47; PULSE 80; RESP 18
--- NOTE | 2018-08-12 16:11 | PN ---
Date/Time of Note Date/Time of Note DATE: 08/12/18 TIME: 16:10 Assessment/Plan VTE Prophylaxis Risk score (from Ns)>0 risk: 2 SCD applied (from Ns): Yes Pharmacological prophylaxis: LMWH Lines/Catheters IV [facility] Type (from [facility] Peripheral IV Urinary Cath still in place: Yes Reason Cath still needed: urinary retention Assessment/Plan Assessment/Plan 1. Pseudomonas UTI, suprapubic catheter related, improving on zosyn, give one dose of fosfomycin, home tomorrow if stable 2. Neurogenic bladder from previous surgery, s/p suprapubic catheter status 3. Normocytic anemia, chronic 4. Hypothyroidism, on supplement 5. Adrenal insufficiency, on fludrocortisone 6. Morbid obesity, s/p sleeve surgery 7. h/o hysterectomy 8. DVT prophylaxis: lovenox Result Diagram: 08/12/18 0442 08/10/18 0436 Results 24hrs Laboratory Tests Test 08/12/18 04:42 White Blood Count 8.8 # Red Blood Count 3.37 L Hemoglobin 9.3 L Hematocrit 28.7 L Mean Corpuscular Volume 85.2 Mean Corpuscular Hemoglobin 27.6 L Mean Corpuscular Hemoglobin Concent 32.4 Red Cell Distribution Width 14.2 Platelet Count 214 Mean Platelet Volume 10.2 Immature Granulocytes % 0.300 Neutrophils % 57.8 Lymphocytes % 30.2 Monocytes % 9.0 Eosinophils % 2.4 Basophils % 0.3 Nucleated Red Blood Cells % 0.0 Immature Granulocytes # 0.030 Neutrophils # 5.1 Lymphocytes # 2.6 Monocytes # 0.8 Eosinophils # 0.2 Basophils # 0.0 Nucleated Red Blood Cells # 0.0 Subjective 24 Hr Interval Summary Free Text/Dictation feels better Exam/Review of Systems Vital Signs Vitals Vital Signs Date Temp Pulse Resp B/P (MAP) Pulse Ox O2 O2 Flow FiO2 Time Delivery Rate 08/12/18 98.8 80 18 86/47 (60) 92 Room Air 15:36 Intake and Output 08/11/18 08/11/18 08/12/18 1515:00 23:00 07:00 IntakeIntake Total 530 ml 520 ml OutputOutput Total 1820 ml 950 ml BalanceBalance 530 ml -1300 ml -950 ml Exam Constitutional: alert, oriented, well developed, obese Head: normocephalic, atraumatic Eyes: nl conjunctiva, EOMI, nl lids ENMT: nl external ears & nose, nl lips & teeth, nl nasal mucosa & septum Neck: supple, non-tender Respiratory: clear to auscultation, normal air movement; No congested cough, No crackles/rales, No diminished breath sounds, No intercostal retraction, No labored breathing, No respirations, No tactile fremitus, No wheezing, No other Cardiovascular: regular rate and rhythm, nl pulses; No bruits, No diastolic murmur, No edema, No gallop, No irregular rhythm, No jugular venous distention (JVD), No murmurs/extra sounds, No rub, No systolic murmur, No S3, No S4, No other Gastrointestinal: soft, nl liver, spleen Musculoskeletal: nl extremities to inspection; No joint tenderness, No muscle tone, No muscle weakness, No range of motion, No spine non-tender, No swelling, No other Extremities: normal pulses; No calf tenderness, No cyanosis, No clubbing, No edema, No pitting pedal edema, No palpable cord, No tenderness, No other 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, nl mental status, nl speech, nl strength Medications Medications Current Medications IV Flush (NS 3 ml) 3 ml PER PROTOCOL IV ; Start 08/09/18 at 05:00 Ondansetron HCl (Zofran Inj) 4 mg Q6H PRN IV NAUSEA AND/OR VOMITING Last administered on 08/12/18at 12:11; Admin Dose 4 MG; Start 08/09/18 at 05:00 Acetaminophen (Tylenol Tab) 650 mg Q6H PRN PO PAIN LEVEL 1-3 OR FEVER; Start 08/09/18 at 05:00 Albuterol/ Ipratropium (Duoneb) 3 ml Q2H RESP THERAPY PRN HHN SHORTNESS OF BREATH; Start 08/09/18 at 05:00 Alprazolam (Xanax) 1 mg Q8H PRN PO ANXIETY Last administered on 08/12/18at 12:18; Admin Dose 1 MG; Start 08/09/18 at 05:00 Ergocalciferol (Drisdol) 50,000 unit Q2D PO Last administered on 08/11/18 09:47; Admin Dose 50,000 UNIT; Start 08/09/18 at 09:00 Fludrocortisone Acetate (Florinef) 0.1 mg DAILY PO Last administered on 08/12/18 08:30; Admin Dose 0.1 MG; Start 08/09/18 at 09:00 Gabapentin (Neurontin) 300 mg TID PO Last administered on 08/12/18 12:18; Admin Dose 300 MG; Start 08/09/18 at 09:00 Hyoscyamine (Levsin (Sl)) 0.125 mg WITH MEALS BEDTIME SL Last administered on 08/12/18 12:15; Admin Dose 0.125 MG; Start 08/09/18 at 07:50 Levothyroxine Sodium (Synthroid) 200 mcg BEFORE BREAKFAST PO Last administered on 08/12/18 05:42; Admin Dose 200 MCG; Start 08/09/18 at 07:00 Liothyronine Sodium (Cytomel) 10 mcg DAILY PO Last administered on 08/12/18 08:29; Admin Dose 10 MCG; Start 08/09/18 at 09:00 Naproxen (Naprosyn) 500 mg TID PO Last administered on 08/12/18 12:18; Admin Dose 500 MG; Start 08/09/18 at 09:00 Pantoprazole (Protonix Tab) 40 mg AC BREAKFAST PO Last administered on 08/12/18 08:29; Admin Dose 40 MG; Start 08/09/18 at 07:20 Zolpidem Tartrate (Ambien) 10 mg QHS PRN PO INSOMNIA; Start 08/09/18 at 05:00 Lactobacillus Acidophilus/ Rhamnosus (Culturelle) 1 cap BID PO Last administered on 08/12/18 08:29; Admin Dose 1 CAP; Start 08/09/18 at 21:00 Piperacillin Sod/ Tazobactam Sod 100 ml @ 200 mls/hr Q8 IVPB Last administered on 08/12/18 13:46; Admin Dose 200 MLS/HR; Start 08/10/18 at 15:30 Acetaminophen/ Hydrocodone Bitart ([place] (5/325)) 1 tab Q4H PRN PO PAIN LEVEL 1-6 Last administered on 08/11/18 18:45; Admin Dose 1 TAB; Start 08/10/18 at 17:00 Acetaminophen/ Hydrocodone Bitart ([place] (5/325)) 2 tab Q4H PRN PO SEVERE PAIN LEVEL 7-10 Last administered on 08/11/18at 22:21; Admin Dose 2 TAB; Start 08/10/18 at 17:00 Enoxaparin Sodium (Lovenox) 40 mg DAILY SC Last administered on 08/12/18at 08:31; Admin Dose 40 MG; Start 08/11/18 at 16:00 CATRINA STEARNS MD Aug 12, 2018 16:11
[2018-08-12] MEDS ORDERED: FOSFOMYCIN 3 GM PACKET PO ONE (17:30)
[2018-08-12 19:56] VITALS: BP 97/52; PULSE 63; RESP 18
[2018-08-13 02:49] VITALS: BP 117/61; PULSE 66; RESP 18
[2018-08-13] MEDS: HYDROCODONE/APAP (5/325) TAB PO PRN ×3 (04:29→11:08)
[2018-08-13] MEDS: PANTOPRAZOLE (EC) 40 MG TAB PO SCH ×2 (07:20→09:18)
[2018-08-13] MEDS: LEVOTHYROXINE 100 MCG TAB PO SCH (07:21)
[2018-08-13 08:18] VITALS: BP 105/52; PULSE 67; RESP 18
[2018-08-13] MEDS: LIOTHYRONINE 5 MCG TAB PO SCH (09:18)
[2018-08-13] MEDS: ERGOCALCIFEROL 50,000 UNIT CAP PO SCH (09:19)
[2018-08-13] MEDS: NAPROXEN 500 MG TAB PO SCH ×2 (09:19→12:48)
[2018-08-13] MEDS: HYOSCYAMINE 0.125 MG SUBL TAB SL SCH ×2 (09:19→11:08)
[2018-08-13] MEDS: LACTOBACILLUS RHAMNOSUS CAP PO SCH (09:19)
[2018-08-13] MEDS: ALPRAZOLAM 1 MG TAB PO PRN (09:21)
[2018-08-13] MEDS: FLUDROCORTISONE 0.1 MG TAB PO SCH (09:50)
[2018-08-13] MEDS: GABAPENTIN 300 MG CAP PO SCH ×2 (09:50→12:48)
[2018-08-13] MEDS: ENOXAPARIN 40 MG/0.4 ML SYG SC SCH (10:09)
[2018-08-13] MEDS ORDERED: CIPR500T4 PO (12:46)
[2018-08-13] MEDS ORDERED: LACTINEX PO (12:46)
--- NOTE | 2018-08-13 13:34 | CONS ---
Date/Time of Note Date/Time of Note DATE: 08/13/18 TIME: 13:20 Assessment/Plan Assessment/Plan Assessment/Plan 37-year-old female presented to the emergency room with the suprapubic pain. She is known to have a history of urinary retention and suprapubic tube that was inserted in June 2017 and has been regularly changed by a visiting nurse every 2 weeks. Patient states that the suprapubic tube is due to be changed. She was also treated with antibiotic before and that did not clear her infection. Therefore she was admitted to the hospital for further care. She states she was undergoing laparoscopic hysterectomy and postop she states that her artery was nicked. She was not able to urinate and had a suprapubic tube inserted. Attempts to have her urinate by clamping the suprapubic tube were not successful. She was evaluated with urodynamics by who also did nerve stimulator without success. Presently she is being treated for her urinary tract infection. I did change her suprapubic tube. I used a 16 [place] Schulte catheter. We will send urine for culture and sensitivity from the new catheter. I did discuss with her trying to clamp the suprapubic tube and see if she voids and then check her postvoid residual. She said that was tried before and was not successful. I did discuss with her also her doing self intermittent catheterization and that also she said she cannot do it. So for now we will keep the suprapubic tube in place and treat her infection. Result Diagram: 08/12/18 0442 08/10/18 0436 Consultation Date/Type/Reason Admit Date/Time Aug 09, 2018 at 01:10 Date of Consultation: Aug 13, 2018 Type of Consult Urology Reason for Consultation Urinary tract infection, suprapubic tube and suprapubic pain Requesting Provider: FADY WANG Hx of Present Illness 37-year-old female presented to the emergency room with the suprapubic pain. She is known to have a history of urinary retention and suprapubic tube that was inserted in June 2017 and has been regularly changed by a visiting nurse every 2 weeks. Patient states that the suprapubic tube is due to be changed. She was also treated with antibiotic before and that did not clear her infection. Therefore she was admitted to the hospital for further care. She states she was undergoing laparoscopic hysterectomy and postop she states that her artery was nicked. She was not able to urinate and had a suprapubic tube inserted. Attempts to have her urinate by clamping the suprapubic tube were not successful. She was evaluated with urodynamics by who also did nerve stimulator without success. Constitutional: no complaints Eyes: no complaints ENT: no complaints Respiratory: no complaints Cardiovascular: no complaints; No chest pain Gastrointestinal: pain (Pain in suprapubic area, she had gastric sleeve) Genitourinary: other (Suprapubic tube and recurrent urinary tract infection, u rinary retention) Musculoskeletal: no complaints Skin: no complaints Endocrine: no complaints Lymphatic: no complaints Past Medical History Medical History: other (Irritable bowel syndrome) Medications Current Medications IV Flush (NS 3 ml) 3 ml PER PROTOCOL IV ; Start 08/09/18 at 05:00 Ondansetron HCl (Zofran Inj) 4 mg Q6H PRN IV NAUSEA AND/OR VOMITING Last administered on 08/12/18at 12:11; Admin Dose 4 MG; Start 08/09/18 at 05:00 Acetaminophen (Tylenol Tab) 650 mg Q6H PRN PO PAIN LEVEL 1-3 OR FEVER; Start 08/09/18 at 05:00 Albuterol/ Ipratropium (Duoneb) 3 ml Q2H RESP THERAPY PRN HHN SHORTNESS OF BREATH; Start 08/09/18 at 05:00 Alprazolam (Xanax) 1 mg Q8H PRN PO ANXIETY Last administered on 08/13/18 09:21; Admin Dose 1 MG; Start 08/09/18 at 05:00 Ergocalciferol (Drisdol) 50,000 unit Q2D PO Last administered on 08/13/18 09 :19; Admin Dose 50,000 UNIT; Start 08/09/18 at 09:00 Fludrocortisone Acetate (Florinef) 0.1 mg DAILY PO Last administered on 08/13/18 09:50; Admin Dose 0.1 MG; Start 08/09/18 at 09:00 Gabapentin (Neurontin) 300 mg TID PO Last administered on 08/13/18 12:48; Admin Dose 300 MG; Start 08/09/18 at 09:00 Hyoscyamine (Levsin (Sl)) 0.125 mg WITH MEALS BEDTIME SL Last administered on 08/13/18 11:08; Admin Dose 0.125 MG; Start 08/09/18 at 07:50 Levothyroxine Sodium (Synthroid) 200 mcg BEFORE BREAKFAST PO Last administered on 08/13/18 07:21; Admin Dose 200 MCG; Start 08/09/18 at 07:00 Liothyronine Sodium (Cytomel) 10 mcg DAILY PO Last administered on 08/13/18 09:18; Admin Dose 10 MCG; Start 08/09/18 at 09:00 Naproxen (Naprosyn) 500 mg TID PO Last administered on 08/13/18 12:48; Admin Dose 500 MG; Start 08/09/18 at 09:00 Pantoprazole (Protonix Tab) 40 mg AC BREAKFAST PO Last administered on 08/13/18 09:18; Admin Dose 40 MG; Start 08/09/18 at 07:20 Zolpidem Tartrate (Ambien) 10 mg QHS PRN PO INSOMNIA; Start 08/09/18 at 05:00 Lactobacillus Acidophilus/ Rhamnosus (Culturelle) 1 cap BID PO Last administered on 08/13/18 09:19; Admin Dose 1 CAP; Start 08/09/18 at 21:00 Acetaminophen/ Hydrocodone Bitart ([place] (5/325)) 1 tab Q4H PRN PO PAIN LEVEL 1-6 Last administered on 08/13/18 09:22; Admin Dose 1 TAB; Start 08/10/18 at 17:00 Acetaminophen/ Hydrocodone Bitart ([place] (5/325)) 2 tab Q4H PRN PO SEVERE PAIN LEVEL 7-10 Last administered on 08/13/18 11:08; Admin Dose 1 TAB; Start 08/10/18 at 17:00 Enoxaparin Sodium (Lovenox) 40 mg DAILY SC Last administered on 08/13/18 10:09; Admin Dose 40 MG; Start 08/11/18 at 16:00 Allergies: Coded Allergies: Sulfa (Sulfonamide Antibiotics) (Verified Allergy, Unknown, 08/08/18) Past Surgical History Past Surgical Hx: other (Gastric sleeve, laparoscopic hysterectomy) Social History Smoking Status: Never smoker Exam/Review of Systems Vital Signs Vitals Vital Signs Date Temp Pulse Resp B/P (MAP) Pulse Ox O2 O2 Flow FiO2 Time Delivery Rate 08/13/18 97.8 67 18 105/52 100 Room Air 08:18 (69) Intake and Output 08/12/18 08/12/18 08/13/18 1515:00 23:00 07:00 IntakeIntake Total 440 ml 570 ml OutputOutput Total 1700 ml BalanceBalance 440 ml 570 ml -1700 ml Exam Constitutional: alert, oriented Psych: anxiety Head: normocephalic Eyes: nl conjunctiva ENMT: nl external ears & nose Neck: non-tender Respiratory: normal air movement Cardiovascular: No jugular venous distention (JVD) Gastrointestinal: soft, other (Suprapubic tube in place) Musculoskeletal: nl extremities to inspection Extremities: No calf tenderness Medications Medications Current Medications IV Flush (NS 3 ml) 3 ml PER PROTOCOL IV ; Start 08/09/18 at 05:00 Ondansetron HCl (Zofran Inj) 4 mg Q6H PRN IV NAUSEA AND/OR VOMITING Last administered on 08/12/18at 12:11; Admin Dose 4 MG; Start 08/09/18 at 05:00 Acetaminophen (Tylenol Tab) 650 mg Q6H PRN PO PAIN LEVEL 1-3 OR FEVER; Start 08/09/18 at 05:00 Albuterol/ Ipratropium (Duoneb) 3 ml Q2H RESP THERAPY PRN HHN SHORTNESS OF BREATH; Start 08/09/18 at 05:00 Alprazolam (Xanax) 1 mg Q8H PRN PO ANXIETY Last administered on 08/13/18at 09:21; Admin Dose 1 MG; Start 08/09/18 at 05:00 Ergocalciferol (Drisdol) 50,000 unit Q2D PO Last administered on 08/13/18 09:19; Admin Dose 50,000 UNIT; Start 08/09/18 at 09:00 Fludrocortisone Acetate (Florinef) 0.1 mg DAILY PO Last administered on 08/13/18at 09:50; Admin Dose 0.1 MG; Start 08/09/18 at 09:00 Gabapentin (Neurontin) 300 mg TID PO Last administered on 08/13/18at 12:48; Admin Dose 300 MG; Start 08/09/18 at 09:00 Hyoscyamine (Levsin (Sl)) 0.125 mg WITH MEALS BEDTIME SL Last administered on 08/13/18 11:08; Admin Dose 0.125 MG; Start 08/09/18 at 07:50 Levothyroxine Sodium (Synthroid) 200 mcg BEFORE BREAKFAST PO Last administered on 08/13/18 07:21; Admin Dose 200 MCG; Start 08/09/18 at 07:00 Liothyronine Sodium (Cytomel) 10 mcg DAILY PO Last administered on 08/13/18 0 9:18; Admin Dose 10 MCG; Start 08/09/18 at 09:00 Naproxen (Naprosyn) 500 mg TID PO Last administered on 08/13/18 12:48; Admin Dose 500 MG; Start 08/09/18 at 09:00 Pantoprazole (Protonix Tab) 40 mg AC BREAKFAST PO Last administered on 08/13/18 09:18; Admin Dose 40 MG; Start 08/09/18 at 07:20 Zolpidem Tartrate (Ambien) 10 mg QHS PRN PO INSOMNIA; Start 08/09/18 at 05:00 Lactobacillus Acidophilus/ Rhamnosus (Culturelle) 1 cap BID PO Last administered on 08/13/18 09:19; Admin Dose 1 CAP; Start 08/09/18 at 21:00 Acetaminophen/ Hydrocodone Bitart ([place] (5/325)) 1 tab Q4H PRN PO PAIN LEVEL 1-6 Last administered on 08/13/18 09:22; Admin Dose 1 TAB; Start 08/10/18 at 17:00 Acetaminophen/ Hydrocodone Bitart ([place] (5/325)) 2 tab Q4H PRN PO SEVERE PAIN LEVEL 7-10 Last administered on 08/13/18 11:08; Admin Dose 1 TAB; Start 08/10/18 at 17:00 Enoxaparin Sodium (Lovenox) 40 mg DAILY SC Last administered on 08/13/18 10:09; Admin Dose 40 MG; Start 08/11/18 at 16:[address] scan of the abdomen and pelvis done on July 23, 2018: 1. Status post gastric sleeve surgery. No evidence of acute intra- abdominal/pelvic inflammatory process. No evidence of bowel obstruction. The appendix is within normal limits. Stool filled loops of large bowel suggestive of constipation. 2. Suprapubic catheter in place. Diffuse thickening of the wall the bladder, cannot exclude infectious versus inflammatory cystitis. 3. Status post hysterectomy. Left cystic adnexa, measuring 3.4 cm which may represent an ovarian cyst remnant. There is also a 2.5 cm cystic structure adjacent to a loop of small bowel which may represent a right ovarian cystic remnant versus possible duplication cyst. 4. No gross renal/ureteric calculi. No evidence of obstructive uropathy within both kidneys. 5. No evidence of free fluid or free air. No gross focal fluid collections. ABBY KEATING MD Aug 13, 2018 13:32
--- NOTE | 2018-08-13 14:20 | PDOCDIS ---
Discharge Instructions CONDITION [id number] Patient Condition: [id number] Stable HOME CARE INSTRUCTIONS: [id number] Special Diet: [id number] regular ACTIVITY: [id number] Activity Restrictions: [id number] Slowly Increase Activity Rest between Activity FOLLOW UP/APPOINTMENTS Follow-up Plan 1. Followup with your primary doctor within the next 1-2 weeks, If you continue to feel depressed, please let him or her know. You may also return to the ER. If you begin to have thoughts to harm yourself or anyone else, please return to the ER or call your PCP or even 911 right away. If you don't have a PCP, please let someone know, we can give you resources that may help you pick one. You may call Dr Lio Liriano's office. he's accepting new patients Name, Degree: Lio Liriano MD Specialty: Internal Medicine Comments: Office Address: [address] [place], [place] [id number] Office Office You may also call your insurance company to assign one to you. 2. Review your medication list with your nurse before leaving and if you need new prescriptions please let your nurse know. 3. I may have made changes to your home medications or given you new prescriptions, please let your primary doctor know as well. 4. Stay compliant with your medications and report any side effects to your PCP or pharmacist. 5. Return to the ER if you have any concerns and cannot reach your doctors or call your insurance company, they usually have a nurse that can help you. FADY WANG Aug 13, 2018 14:20
[2018-08-13] MEDS ORDERED: AMOX1TAB10 PO (17:04)
[2018-08-13] MEDS ORDERED: DOCU250C58 PO (17:58)
[2018-08-13] MEDS ORDERED: POLY17PO6 PO (17:58)
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
== END 2018-08-13 19:10 | disposition home or self-care (01) | DRG 699 ==
LOC: E/R 19:01 → MS1 08-09 01:10
PROVIDERS: ADMIT Internal Medicine; ATTEND Internal Medicine
DX: T83.518A Infection and inflammatory reaction due to other urinary catheter, initial encounter (principal); N39.0 Urinary tract infection, site not specified; E27.40 Unspecified adrenocortical insufficiency; B96.5 Pseudomonas (aeruginosa) (mallei) (pseudomallei) as the cause of diseases classified elsewhere; E03.9 Hypothyroidism, unspecified; N31.9 Neuromuscular dysfunction of bladder, unspecified; F32.9 Major depressive disorder, single episode, unspecified; K59.00 Constipation, unspecified; Z98.84 Bariatric surgery status
CPT/HCPCS: 36415; 71045; 80048; 80053; 81001; 83605; 83735; 84100; 84145; 84439; 84443; 84480; 84484; 85025; 85610; 85730; 87040; 87086; 93005; 96374; 96375; J0696; J1170; J1650; J2270; J2405; J2543; J7030

== ENCOUNTER 2018-12-24 21:02 | Emergency (ER) | payer OTHER ==
[~2018-12-24] VITALS: Ht 162.6 cm; Wt 91.5 kg
[~2018-12-24 21:02] MED LIST changes: +AMOX1TAB10 PO; +DOCU250C58 PO; +LACTINEX PO; -LEVO500T48 PO; -NITR-58 PO; +POLY17PO6 PO
[2018-12-24 21:05] VITALS: Ht 162.6 cm; Wt 91.5 kg
--- NOTE | 2018-12-24 22:19 | ERD ---
ER Documentation Chief Complaint Chief Complaint nausea/vomiting/diarrhea left sided ab pain x3days HPI The patient is a 38-year-old female, presenting to the ER because of left-sided abdominal pain, vomiting, diarrhea for the last 3 days but worse today. She had similar symptom previously, denies hematochezia/hematuria, hematemesis. She denies fever, chills, neck pain, chest pain, dyspnea. There is no aggravating/relieving factor. She does not smoke/drink/use illicit drug. She is follow-up closely with her urologist for her neurogenic bladder and suprapubic Schulte catheter care/ change q 2 weeks. She had an EGD about 2 weeks ago that showed inflammation also esophageal and reflux, treated with Reglan Past medical history: Anxiety, depression, hypothyroidism, neurogenic bladder, anemia, chronic renal insufficiency, IBS, hemorrhoids, MARJ, chronic UTI which she f/u frequently with her urologist Past surgical history: Hysterectomy, gastric sleeve ROS All systems reviewed and are negative except as per history of present illness. Medications Home Meds Active Scripts Loperamide Hcl* (Imodium*) 2 Mg Capsule, 2 MG PO Q6H PRN for DIARRHEA, #10 CAP MAX 16 mg/day Prov:TEODORO GILLESPIE MD 12/25/18 Ondansetron (Ondansetron Odt) 4 Mg Tab.rapdis, 4 MG PO Q6H PRN for NAUSEA AND/OR VOMITING, #10 TAB Prov:TEODORO GILLESPIE MD 12/25/18 Polyethylene Glycol* (Miralax*) 17 Gm Powd.pack, 8.5 GM PO Q48H, #15 PACKET 2 Refills Prov:FADY WANG 08/13/18 Docusate Sodium* (Colace*) 250 Mg Capsule, 250 MG PO DAILY, #30 CAP 2 Refills Prov:FADY WANG. 08/13/18 Amoxicillin/Potassium Clav (Amox-Clav 875-125 mg Tablet) 875-125 mg Tab, 1 TAB PO BID, #20 TAB Prov:FADY WANG. 08/13/18 Lactobacillus Acidophilus* (Lactinex*) 1 Tab Chew, 1 TAB PO BID, #20 TAB Prov:FADY WANG. 08/13/18 Acetaminophen with Codeine (Acetaminophen-Cod #3 Tablet) 1 Each Tablet, 1 TAB PO Q6H PRN for PAIN, #20 TAB Prov:TOMAS LOMBARDO MD 07/23/18 Reported Medications Esomeprazole Mag Trihydrate (Nexium) 40 Mg Capsule.dr, 40 MG PO DAILY, #30 CAP 07/16/18 Dicyclomine HCl (Dicyclomine HCl) 20 Mg Tablet, 10 MG PO DAILY 07/16/18 Alprazolam* (Xanax*) 1 Mg Tab, 1 MG PO NEEDED PRN for ANXIETY, TAB 07/16/18 Zolpidem Tartrate* (Zolpidem Tartrate*) 10 Mg Tablet, 10 MG PO QHS PRN for INSOMNIA, #30 TAB 07/16/18 Ergocalciferol (Vitamin D2) (VITAMIN D2) 50,000 Unit Capsule, 80122 UNIT PO Q2D, CAP 07/16/18 Pantoprazole* (Pantoprazole*) 40 Mg Tablet.dr, 40 MG PO AC BREAKFAST, TAB 07/16/18 Liothyronine Sodium* (Cytomel*) 5 Mcg Tablet, 10 MCG PO DAILY, TAB 07/16/18 Levothyroxine Sodium* (Levothyroxine Sodium*) 200 Mcg Tablet, 200 MCG PO BEFORE BREAKFAST, #30 TAB 07/16/18 Gabapentin* (Gabapentin*) 300 Mg Capsule, 300 MG PO TID, #90 CAP 07/16/18 Fludrocortisone* (Fludrocortisone*) 0.1 Mg Tablet, 0.1 MG PO DAILY, TAB 07/16/18 Ondansetron Hcl* (Zofran*) 8 Mg Tab, 8 MG PO Q8 PRN for NAUSEA AND/OR VOMITING, TAB 07/16/18 Naproxen* (Naproxen*) 500 Mg Tablet, 500 MG PO TID, TAB 07/16/18 Hyoscyamine Sulfate* (Hyoscyamine Sulfate*) 0.125 Mg Tab.subl, 0.125 MG SL WITH MEALS BEDTIME, TAB 07/16/18 Prednisone* (Prednisone*) 5 Mg Tab, 5 MG PO DAILY, TAB 07/16/18 Allergies Allergies: Coded Allergies: Sulfa (Sulfonamide Antibiotics) (Unverified Allergy, Unknown, 12/25/18) PMhx/Soc History of Surgery: Yes (HYSTERECTOMY) Anesthesia Reaction: No Hx Neurological Disorder: No Hx Respiratory Disorders: No Hx Cardiac Disorders: No Hx Psychiatric Problems: No Hx Miscellaneous Medical Probl: No Hx Alcohol Use: No Hx Substance Use: No Hx Tobacco Use: No Physical Exam Vitals Vital Signs Date Temp Pulse Resp B/P (MAP) Pulse Ox O2 O2 Flow FiO2 Time Delivery Rate 12/25/18 98.0 78 16 102/58 100 Room Air 01:08 (73) 12/24/18 97.4 86 20 120/65 98 21:05 (83) Physical Exam Const: No acute distress. Head: Atraumatic. Eyes: Normal Conjunctiva. ENT: Normal External Ears, Nose and Mouth. Neck: Full range of motion. No meningismus. Resp: Clear to auscultation bilaterally. Cardio: Regular rate and rhythm. Abd: Soft, non distended, normal bowel sounds, vague and mild tenderness at the left side of the abdomen, no rigidity/rebound/CVA tenderness Skin: No petechiae or rashes. Back: No midline or flank tenderness. Ext: No cyanosis, or edema. Neur: Awake and alert. No focal deficit Psych: Normal Mood and Affect. Result Diagram: 12/24/18 2302 12/24/18 2302 Results 24 hrs Laboratory Tests Test 12/24/18 23:02 12/24/18 23:58 12/25/18 00:00 White Blood Count 10.7 10^3/ul Red Blood Count 4.56 10^6/ul Hemoglobin 12.4 g/dl Hematocrit 39.1 % Mean Corpuscular Volume 85.7 fl Mean Corpuscular Hemoglobin 27.2 pg Mean Corpuscular 31.7 g/dl Hemoglobin Concent Red Cell Distribution Width 15.0 % Platelet Count 311 10^3/UL Mean Platelet Volume 10.3 fl Immature Granulocytes % 0.500 % Neutrophils % 70.7 % Lymphocytes % 20.9 % Monocytes % 6.9 % Eosinophils % 0.7 % Basophils % 0.3 % Nucleated Red Blood Cells % 0.0 /100WBC Immature Granulocytes # 0.050 10^3/ul Neutrophils # 7.5 10^3/ul Lymphocytes # 2.2 10^3/ul Monocytes # 0.7 10^3/ul Eosinophils # 0.1 10^3/ul Basophils # 0.0 10^3/ul Nucleated Red Blood Cells # 0.0 10^3/ul Sodium Level 142 mmol/L Potassium Level 3.8 mmol/L Chloride Level 109 mmol/L Carbon Dioxide Level 21 mmol/L Anion Gap 12 Blood Urea Nitrogen 14 mg/dl Creatinine 0.78 mg/dl Est Glomerular Filtrat Rate mL/min > 60 mL/min Glucose Level 104 mg/dl Calcium Level 9.6 mg/dl Total Bilirubin 0.2 mg/dl Direct Bilirubin 0.00 mg/dl Indirect Bilirubin 0.2 mg/dl Aspartate Amino Transf (AST/SGOT) 23 IU/L Alanine 20 IU/L Aminotransferase (ALT/SGPT) Alkaline Phosphatase 123 IU/L Total Protein 9.1 g/dl Albumin 4.8 g/dl Globulin 4.30 g/dl Albumin/Globulin Ratio 1.11 Lipase 150 U/L Bedside Urine pH (LAB) 5.0 Bedside Urine Protein (LAB) 1+ Bedside Urine Glucose (UA) Negative Bedside Urine Ketones (LAB) Negative Bedside Urine Blood 2+ Bedside Urine Nitrite (LAB) Negative Bedside Urine Leukocyte Esterase 1+ (L POC Beta HCG, Qualitative NEGATIVE Current Medications Medications Dose Sig/Moises Start Time Status Last (Trade) Ordered Route PRN Stop Time Admin Dose Reason Admin Sodium 1,000 ml @ Q1H ONCE 12/24/18 DC 12/24/18 Chloride 1,000 mls/hr IV 23:00 23:40 12/24/18 23:59 Morphine 2 mg ONCE STAT 12/24/18 DC 12/24/18 Sulfate IV 22:46 23:40 (morphine) 12/24/18 22:47 Ondansetron 4 mg ONCE STAT 12/24/18 DC 12/24/18 HCl (Zofran IV 22:46 23:40 Inj) 12/24/18 22:47 0.5 mg ONCE STAT 12/25/18 DC 12/25/18 Hydromorphone IV 00:39 00:49 HCl 12/25/18 00:41 (Dilaudid) Procedures/[place] [id number] Radiology Main Line: [phone] DIAGNOSTIC IMAGING REPORT Patient: SIENNA GUZMAN : 1980 Age: 38 Sex: F MR #: [id number] DOS: 12/24/18 2246 Ordering MD: TEODORO GILLESPIE MD Location: E/R Room/Bed: PROCEDURE: CT Abdomen and Pelvis without contrast. CLINICAL INDICATION: Abdominal pain TECHNIQUE: CT scan of the abdomen and pelvis without contrast was performed on a multi-detector high-resolution CT scanner. Multi-planar reformats are provided. Images were reviewed on a high-resolution PACS workstation. The total exam CTDI equals 18 mGy and the total exam DLP equals 1095 mGy-cm. DICOM images are available. One or more of the following dose reduction techniques were utilized: 1.) Automated exposure control 2.) Adjustment of the mA +/- kV according to patient's size 3.) Use of iterative reconstruction technique. COMPARISON: 07/23/2018 FINDINGS: Please note that evaluation of the solid and hollow viscera is limited by lack of IV contrast. Lower thorax: Unremarkable. Liver: Unremarkable. Biliary: Unremarkable. Pancreas: Unremarkable. Spleen: Unremarkable. Adrenals: Unremarkable. Kidneys: No retained stone is identified. No hydronephrosis. Bowel: No evidence of obstruction. The appendix is normal. Postsurgical changes the stomach again seen. Pelvic organs: Suprapubic catheter is again noted. Uterus surgically removed. Bilateral adnexal cystic lesions no longer visualized. Peritoneum: No free air or fluid. Lymph Nodes: No pathologic adenopathy identified. Vessels: Unremarkable. Bones and remaining soft tissues: No acute bony abnormality identified. Mild spinal degenerative changes are seen. Remaining soft tissues are unremarkable. IMPRESSION: No evidence of urolithiasis or an obstructive uropathy. No other acute abnormality identified in the abdomen or pelvis. RPTAT:HCLE Physician Shailesh Date Time Electronically viewed and signed by Physician Shailesh on 12/25/2018 00:34 cE/ CC: TEODORO GILLESPIE MD [phone] MEDICAL MAKING DECISION: The patient is a 38-year-old female, presenting with acute abdominal pain, chronic cystitis. She was treated with 1 L normal saline for her clinical dehydration, morphine 2 mg and Dilaudid 0.5 mg IV for pain and Zofran for medical IV for nausea with good response, is stable for outpatient follow-up. Urine is submitted from her urostomy bag, I suspect it is contaminated therefore she needs no treatment The differential diagnoses considered include but are not limited to adhesion, cholelithiasis, cholecystitis, choledocholithiasis, cholangitis, pancreatitis, hepatitis, gastritis, peptic ulcer disease, gastric ulcer, appendicitis, cystitis, diverticulitis, partial small bowel obstruction. Departure Diagnosis: Primary Impression: Abdominal pain Additional Impression: Vomiting and diarrhea Condition: Good Comments She was discharged with Zofran and Imodium I discussed the findings with the patient. I advised the patient to follow-up w ith the primary physician in about 1-2 days, sooner if needed and return if any concern. Disclaimer: Inadvertent spelling and grammatical errors are likely due to EHR/dictation software use and do not reflect on the overall quality of patient care. Also, please note that the electronic time recorded on this note does not necessarily reflect the actual time of the patient encounter. TEODORO GILLESPIE MD December 24, 2018 22:19
[2018-12-24] MEDS ORDERED: ONDANSETRON 4 MG INJ IV STA (22:46)
[2018-12-24] MEDS ORDERED: morphine 2 MG INJ IV STA (22:46)
[2018-12-24] MEDS ORDERED: SOD CHLORIDE 0.9% 1,000 ML IV ONE (23:00)
[2018-12-25] MEDS ORDERED: HYDROmorphONE 0.5 MG/0.5 ML SYG IV STA (00:39)
[2018-12-25] MEDS ORDERED: ONDA4TAB14 PO (00:53)
[2018-12-25] MEDS ORDERED: LOPE2CAP PO (00:54)
[2018-12-25 01:08] VITALS: BP 102/58; PULSE 78; RESP 16
== END 2018-12-25 01:10 | disposition home or self-care (01) ==
LOC: E/R 21:02
DX: R11.10 Vomiting, unspecified (principal); R10.9 Unspecified abdominal pain; R19.7 Diarrhea, unspecified; R40.2142 Coma scale, eyes open, spontaneous, at arrival to emergency department; R40.2362 Coma scale, best motor response, obeys commands, at arrival to emergency department; R40.2252 Coma scale, best verbal response, oriented, at arrival to emergency department
CPT/HCPCS: 74176; 80053; 81003; 81025; 83690; 85025; 87086; J1170; J2270; J2405; J7030; 36415; 96361; 96374; 96375

== ENCOUNTER 2019-01-29 22:07 | Emergency (ER) | payer OTHER ==
[~2019-01-29] VITALS: Ht 165.1 cm; Wt 91.0 kg
[~2019-01-29 22:07] MED LIST changes: +LOPE2CAP PO; +ONDA4TAB14 PO
[2019-01-29 22:10] VITALS: Ht 165.1 cm; Wt 91.0 kg
[2019-01-29] MEDS ORDERED: KETOROLAC 15 MG INJ IM STA (23:09)
[2019-01-29] MEDS ORDERED: ONDANSETRON (ODT) 4 MG TAB ODT STA (23:17)
[2019-01-29] MEDS ORDERED: CEFTRIAXONE 1 GM INJ IM ONE (23:30)
[2019-01-29] MEDS ORDERED: LIDOCAINE 1% (MDV) 20 ML INJ ONE (23:30)
--- NOTE | 2019-01-29 23:35 | ERD ---
ER Documentation Chief Complaint Chief Complaint Pt has suprapubic catheter and c/o flank pain, pt has chronic kidney infect HPI This is a 38-year-old female who presents for evaluation of bilateral flank pain. Patient denies fever, she has a history of recurrent UTIs, her past cultures have shown Pseudomonas as well as enterococcus. Last month she had a UTI, she she was treated with Cipro, most recently her PMD started her on Macrobid, but she states she has not had improvement in her symptoms, she is also taking Pyridium. Her urinary retention came from a surgical complication many years ago. Last when she was seen here and had a CT scan which showed no acute findings. Labs today were overall unremarkable, with no evidence of leukocytosis, at discharge the patient was in no distress. ROS All systems reviewed and are negative except as per history of present illness. Medications Home Meds Active Scripts Ciprofloxacin Hcl* (Ciprofloxacin Hcl*) 500 Mg Tablet, 500 MG PO BID for 10 Days, TAB Prov:ATIYA HASSAN MD 01/29/19 Loperamide Hcl* (Imodium*) 2 Mg Capsule, 2 MG PO Q6H PRN for DIARRHEA, #10 CAP MAX 16 mg/day Prov:TEODORO GILLESPIE MD 12/25/18 Ondansetron (Ondansetron Odt) 4 Mg Tab.rapdis, 4 MG PO Q6H PRN for NAUSEA AND/OR VOMITING, #10 TAB Prov:TEODORO GILLESPIE MD 12/25/18 Polyethylene Glycol* (Miralax*) 17 Gm Powd.pack, 8.5 GM PO Q48H, #15 PACKET 2 Refills Prov:FADY WANG 08/13/18 Docusate Sodium* (Colace*) 250 Mg Capsule, 250 MG PO DAILY, #30 CAP 2 Refills Prov:FADY WANG 08/13/18 Amoxicillin/Potassium Clav (Amox-Clav 875-125 mg Tablet) 875-125 mg Tab, 1 TAB PO BID, #20 TAB Prov:FADY WANG 08/13/18 Lactobacillus Acidophilus* (Lactinex*) 1 Tab Chew, 1 TAB PO BID, #20 TAB Prov:FADY WANG 08/13/18 Acetaminophen with Codeine (Acetaminophen-Cod #3 Tablet) 1 Each Tablet, 1 TAB PO Q6H PRN for PAIN, #20 TAB Prov:TOMAS LOMBARDO MD 07/23/18 Reported Medications Esomeprazole Mag Trihydrate (Nexium) 40 Mg Capsule.dr, 40 MG PO DAILY, #30 CAP 07/16/18 Dicyclomine HCl (Dicyclomine HCl) 20 Mg Tablet, 10 MG PO DAILY 07/16/18 Alprazolam* (Xanax*) 1 Mg Tab, 1 MG PO NEEDED PRN for ANXIETY, TAB 07/16/18 Zolpidem Tartrate* (Zolpidem Tartrate*) 10 Mg Tablet, 10 MG PO QHS PRN for IN SOMNIA, #30 TAB 07/16/18 Ergocalciferol (Vitamin D2) (VITAMIN D2) 50,000 Unit Capsule, 84916 UNIT PO Q2D, CAP 07/16/18 Pantoprazole* (Pantoprazole*) 40 Mg Tablet.dr, 40 MG PO AC BREAKFAST, TAB 07/16/18 Liothyronine Sodium* (Cytomel*) 5 Mcg Tablet, 10 MCG PO DAILY, TAB 07/16/18 Levothyroxine Sodium* (Levothyroxine Sodium*) 200 Mcg Tablet, 200 MCG PO BEFORE BREAKFAST, #30 TAB 07/16/18 Gabapentin* (Gabapentin*) 300 Mg Capsule, 300 MG PO TID, #90 CAP 07/16/18 Fludrocortisone* (Fludrocortisone*) 0.1 Mg Tablet, 0.1 MG PO DAILY, TAB 07/16/18 Ondansetron Hcl* (Zofran*) 8 Mg Tab, 8 MG PO Q8 PRN for NAUSEA AND/OR VOMITING, TAB 07/16/18 Naproxen* (Naproxen*) 500 Mg Tablet, 500 MG PO TID, TAB 07/16/18 Hyoscyamine Sulfate* (Hyoscyamine Sulfate*) 0.125 Mg Tab.subl, 0.125 MG SL WITH MEALS BEDTIME, TAB 07/16/18 Prednisone* (Prednisone*) 5 Mg Tab, 5 MG PO DAILY, TAB 07/16/18 Allergies Allergies: Coded Allergies: Sulfa (Sulfonamide Antibiotics) (Unverified Allergy, Unknown, 12/25/18) PMhx/Soc History of Surgery: Yes (HYSTERECTOMY) Anesthesia Reaction: No Hx Neurological Disorder: No Hx Respiratory Disorders: No Hx Cardiac Disorders: No Hx Psychiatric Problems: No Hx Miscellaneous Medical Probl: No Hx Alcohol Use: No Hx Substance Use: No Hx Tobacco Use: No Smoking Status: Never smoker Physical Exam Vitals Vital Signs Date Temp Pulse Resp B/P (MAP) Pulse Ox O2 O2 Flow FiO2 Time Delivery Rate 01/29/19 97.8 87 16 158/76 98 22:10 (103) Physical Exam Const: No acute distress Head: Atraumatic Eyes: Normal Conjunctiva ENT: Normal External Ears, Nose and Mouth. Neck: Full range of motion. No meningismus. Resp: Clear to auscultation bilaterally Cardio: Regular rate and rhythm, no murmurs Abd: Soft, non tender, non distended. Normal bowel sounds. Suprapubic catheter site clean dry and intact. Skin: No petechiae or rashes Back: No midline or flank tenderness Ext: No cyanosis, or edema Neur: Awake and alert Psych: Normal Mood and Affect Result Diagram: 01/29/19 2347 01/29/19 2347 Results 24 hrs Laboratory Tests Test 01/29/19 22:33 01/29/19 23:47 Urine Color YELLOW Urine Clarity SLIGHTLY CLOUDY Urine pH 5.0 Urine Specific [place] 1.024 Urine Ketones NEGATIVE mg/dL Urine Nitrite NEGATIVE mg/dL Urine Bilirubin NEGATIVE mg/dL Urine Urobilinogen NEGATIVE mg/dL Urine Leukocyte Esterase 3+ Giuseppe/ul Urine Microscopic RBC 31 /HPF Urine Microscopic WBC 123 /HPF Urine Squamous Epithelial Cells FEW /HPF Urine Bacteria FEW /HPF Urine Hemoglobin 2+ mg/dL Urine Glucose NEGATIVE mg/dL Urine Total Protein 1+ mg/dl Urine Test NEGATIVE White Blood Count 7.3 10^3/ul Red Blood Count 3.94 10^6/ul Hemoglobin 10.5 g/dl Hematocrit 33.1 % Mean Corpuscular Volume 84.0 fl Mean Corpuscular Hemoglobin 26.6 pg Mean Corpuscular Hemoglobin Concent 31.7 g/dl Red Cell Distribution Width 15.1 % Platelet Count 250 10^3/UL Mean Platelet Volume 9.6 fl Immature Granulocytes % 0.100 % Neutrophils % 47.7 % Lymphocytes % 42.1 % Monocytes % 7.9 % Eosinophils % 1.9 % Basophils % 0.3 % Nucleated Red Blood Cells % 0.0 /100WBC Immature Granulocytes # 0.010 10^3/ul Neutrophils # 3.5 10^3/ul Lymphocytes # 3.1 10^3/ul Monocytes # 0.6 10^3/ul Eosinophils # 0.1 10^3/ul Basophils # 0.0 10^3/ul Nucleated Red Blood Cells # 0.0 10^3/ul Sodium Level 144 mmol/L Potassium Level 3.9 mmol/L Chloride Level 108 mmol/L Carbon Dioxide Level 26 mmol/L Anion Gap 10 Blood Urea Nitrogen 11 mg/dl Creatinine 0.78 mg/dl Est Glomerular Filtrat Rate mL/min > 60 mL/min Glucose Level 98 mg/dl Calcium Level 9.5 mg/dl Total Bilirubin 0.3 mg/dl Direct Bilirubin 0.00 mg/dl Indirect Bilirubin 0.3 mg/dl Aspartate Amino Transf (AST/SGOT) 23 IU/L Alanine Aminotransferase (ALT/SGPT) 19 IU/L Alkaline Phosphatase 94 IU/L Total Protein 7.9 g/dl Albumin 4.4 g/dl Globulin 3.50 g/dl Albumin/Globulin Ratio 1.25 Lipase 127 U/L Current Medications Medications Dose Sig/Moises Start Time Status Last (Trade) Ordered Route PRN Stop Time Admin Dose Reason Admin Ceftriaxone 1 gm ONCE ONCE 01/29/19 DC 01/29/19 Sodium IM 23:30 23:39 (Rocephin) 01/29/19 23:31 Ketorolac 15 mg ONCE STAT 01/29/19 DC 01/29/19 Tromethamine IM 23:09 23:39 (Toradol) 01/29/19 23:15 Ondansetron 8 mg ONCE STAT 01/29/19 DC 01/29/19 HCl (Zofran ODT 23:17 23:39 Odt) 01/29/19 23:18 Lidocaine 20 ml STK-MED 01/29/19 DC (Xylocaine ONCE .ROUTE 23:30 1% (Mdv) 20 01/29/19 23:31 ml) Procedures/MDM Is a 38-year-old female presents for evaluation of dysuria and flank pain. On exam patient has no abdominal tenderness or peritoneal signs, she is well- appearing and nontoxic, her UA returned positive here, she is otherwise nontoxic appearing with no systemic signs or symptoms, patient was given ceftriaxone here in the ED, and she will be started on Cipro, this was based on her past cultures. At discharge the patient was in no distress. ATIYA HASSAN MD Jan 29, 2019 23:35
[2019-01-29] MEDS ORDERED: CIPR500T4 PO (23:37)
[2019-01-30 01:18] VITALS: BP 142/80; PULSE 78; RESP 14
== END 2019-01-30 01:20 | disposition home or self-care (01) ==
LOC: E/R 22:07
DX: R30.0 Dysuria (principal)
CPT/HCPCS: 80053; 81001; 83690; 84703; 85025; 96372; 99284; J0696; J1885